=== PATIENT | male | born 2005 | race Caucasian/White ===

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

== ENCOUNTER 2024-12-09 15:38 | Outpatient (CLI) | payer BC, SELFPAY ==
--- NOTE | 2024-12-09 15:15 | DI.RAD_ITS ---
Exam(s) XR KNEE LT 3V AP,LAT,DIANA EXAM: XR KNEE LT 3V AP,LAT,DIANA CLINICAL HISTORY: LEFT KNEE PAIN. TECHNIQUE: 2D digital imaging was performed of the left knee. Three images were obtained. Merchant ,AP and lateral views were obtained. COMPARISON: No exams were available for comparison FINDINGS: BONES: No acute fracture is present. No bony destructive lesion is seen. JOINTS: The knee is normally aligned. There is a small joint effusion. No loose body. SOFT TISSUE: Normal. IMPRESSION: Small joint effusion. If there is concern for internal derangement, an MRI should be considered for further evaluation. DATA REPOSITORY: RADIATION DOSE DELIVERED:
== END 2024-12-09 15:39 | disposition home or self-care (01) ==
LOC: DIORS 15:38
PROVIDERS: PCP Pediatrics; Visit Provider Student in an Organized Health Care Education/Training Program
DX: M25.562 Pain in left knee (principal)
CPT/HCPCS: 73562